=== PATIENT | male | born 1940 | race Caucasian/White ===

== ENCOUNTER 2023-11-03 14:25 | Emergency (ER) | payer MEDICARE, OTHER, SELFPAY ==
[2023-11-03 14:34] VITALS: BP 185/105
[2023-11-03 15:36] VITALS: BMI 31.1
[2023-11-03 15:39] VITALS: BP 207/99
[2023-11-03 15:59] LABS: % Basophils 0.5 % (0-2); % Eosinophils 5.3 % (0-6); % Immature Granulocytes 0.3 % (0-0.5); % Lymphocytes 29.4 % (20.5-51.1); % Monocytes 8.2 % (1.7-9.3); % Neutrophils 56.3 % (42.2-75.2); Absolute Eosinophils 0.4 10^3/uL (0-0.7); Absolute Lymphocytes 2.3 10^3/uL (1.2-3.4); Absolute Monocytes 0.7 10^3/uL (0.1-0.6); Absolute Neutrophils 4.5 10^3/uL (1.4-6.5); Hematocrit 39.6 % (39.0-52.0); Hemoglobin 13.2 g/dL (13.0-18.0); Mean Corp Hgb Conc. 33.3 g/dL (33.0-37.0); Mean Corpuscular Hgb 31.4 pg (27.0-31.0); Mean Corpuscular Volume 94.1 fL (80.0-94.0); Mean Platelet Volume 10.5 fL (7.4-10.4); Nucleated Red Blood Cells % 0 % (-); Platelet Count 166 10^3/uL (130-400); Red Blood Cell Count 4.21 10^6/uL (4.70-6.10); Red Cell Dist. Width 14.3 % (11.5-14.5); White Blood Cell Count 7.9 10^3/uL (4.8-10.8)
--- NOTE | 2023-11-03 16:03 | ED.GENMED ---
History of Present Illness
General
Chief Complaint: DVT/Possible Blood Clot
Source: patient
Time Seen by Provider: 11/03/23 15:28
Travel History
Have you had any contact with someone who has COVID-19?: No
Do you have any symptoms of coronavirus? Fever > 100 degrees, chills, cough, shortness of breath, sore throat, loss of taste or smell, muscle aches, or headache?: No
History of Present Illness
History of Present Illness:
83-year-old male with past medical history of hypertension, CHF, aortic stenosis status post aortic aneurysm and valve repair in 2019 presenting to the emergency department from outpatient radiology where he was found to have a DVT within the left
lower extremity. Per radiology patient was apparently diagnosed with a DVT in August but it is unclear as to why patient was never started on anticoagulation, patient had continued swelling which was reason for getting the ultrasound today when
he was found to have progression of previous DVT and sent to the ER for further evaluation. Patient notes he was not aware that he was diagnosed with a DVT in August and is unsure as to why he was never given any anticoagulation. He denies any
chest pain, shortness of breath, palpitations, diaphoresis, pleurisy, cough, hemoptysis or any other concerns. Patient states his main symptom is left lower extremity edema that normally resolves overnight but then progresses again throughout the
daytime.
Past History
Past History
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
ED Past Surgical History: Cardiac, Orthopedic and Other
Social History
Tobacco: Non-smoker
Alcohol: None
Drug: None
Personal:
Living: with family
Family History
Family History: Other (nc)
Review of Systems
Review of Systems
All Other Systems: ROS reviewed and negative except as documented in HPI and ROS
Phy Exam
Physical Exam
Physical Exam:
GENERAL: Alert , in no apparent distress
EYE: conjunctiva clear
Head: Normocephalic atraumatic
NECK: Supple,
ENT: mmm.
Heart: Regular rate and rhythm,
LUNGS: no acute respiratory distress, clear to auscultation
NEUROLOGICAL: Alert and oriented
SKIN: Warm and dry, skin intact.
MUSCULOSKELETAL: well perfused. Moderate left lower extremity edema compared to the right. Easily palpable pedal and tibial pulse. Cap refill less than 2 seconds. Sensation grossly intact to light touch.
PSYCH: Normal and appropriate interaction.
Scores
Heart Failure Risk
Heart Failure Risk Score: Not Applicable
Heart Score for Chest Pain Patients
STEMI patient?: Not applicable
Withdrawal Assessment of Alcohol
Withdrawal Assessment Completed?: Not applicable
Course
Orders/Labs/Results
Orders:
Orders
11/03/23 15:29
IV Insert/Care/Rem.- Treatment PRN
11/03/23 15:52
Basic Metabolic Panel Urgent
Complete Blood Count/With Diff Urgent
PTT Urgent
Prothrombin Time Urgent
11/03/23 16:56
Apixaban [Eliquis] 10 mg PO NOW STA
Abnormal Lab Results
11/03/23
15:52
RBC 4.21 L 10^6/uL
(4.70-6.10)
MCV 94.1 H fL
(80.0-94.0)
MCH 31.4 H pg
(27.0-31.0)
MPV 10.5 H fL
(7.4-10.4)
Absolute Monos (auto) 0.7 H 10^3/uL
(0.1-0.6)
BUN 21 H mg/dl
(9-20)
11/03/23 15:52
11/03/23 15:52
Vital Signs
Initial and Last Documented VS:
Initial Vital Signs
Temp Pulse Resp BP Pulse Ox
98.2 F 69 18 185/105 96
11/03/23 14:34 11/03/23 14:34 11/03/23 14:34 11/03/23 14:34 11/03/23 14:34
Last Documented Vital Signs
Temp Pulse Resp BP Pulse Ox
98.2 F 69 18 207/99 97
11/03/23 14:34 11/03/23 15:39 11/03/23 15:39 11/03/23 15:39 11/03/23 15:39
Mangle Catcher consulted with Physician
Mangle Catcher consulted with physician?: Yes
Name of Physician Consulted: Ericka
MDM/Problems Addressed
MDM/Problems Addressed:
Patient presenting to the emergency department for evaluation after he was found to have occlusive DVT within the left mid and distal femoral vein as well as the left popliteal vein. There is nonocclusive thrombus within the proximal left femoral
vein. Patient is without any other concerns outside of swelling to the left lower extremity. Patient is on a daily 81 mg aspirin. Does not have any further bleeding risks. Patient is noted to be hypertensive. Will monitor this. Will discuss
the case with vascular with disposition pending.
Chronic conditions affecting care: HTN
Acute Exacerbation and/or Progression of Chronic Illness: HTN
*Radiology
Radiology exam reviewed: radiology read reviewed
*Pulse Oximetry
Patient hypoxic: no
*Critical Care Note
Total Time (30-74mins, 75-104mins- exclusive of procedures): Not Applicable
Data Reviewed
Review of Other/Old Records Reveals: Labs and Radiology Studies
Source: patient
Patient Management
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
Escalation/DeEscalation of care consider admission/obs:
I discussed the case with on-call vascular attending Dr. Weaver who is in agreement that as long as patient does not have any bleeding risks can be safely discharged home on oral anticoagulation.
Patient given first dose of Eliquis here. A 1 month supply of Eliquis was called into patient's pharmacy. I discussed potential side effects of Eliquis with the patient and advised on safety measures while taking Eliquis. Patient will contact his
primary care physician for an expedited follow-up. Otherwise stable for discharge home and aware of return precautions.
ED Attending Note
-
Portions of this chart may have been created with voice recognition software.� Occasional wrong word or��sound alike� substitutions may have occurred due to the inherent limitations of voice recognition software.
Discharge Plan
Departure
Patient Disposition: Home (Routine Discharge)
Date of Disposition: 11/03/23
Time of Disposition: 16:56
Patient with high blood pressure during this ER visit?: Yes
Discharge Problem:
Acute deep vein thrombosis (DVT) of left lower extremity, Hypertension
Instructions: Deep Vein Thrombosis (Blood Clots in the Legs) (DC)
Prescriptions:
New
Eliquis 5 mg tablet
5 mg PO BID Qty: 68 0RF
Rx Instructions:
Take 2 tabs PO BID x 6.5 days. Take one tab PO BID remaining days
No Action
budesonide-formoterol [Symbicort] 1 PUFF HFA aerosol inhaler
2 puff inhalation R BID
aspirin 81 MG tablet,delayed release (DR/EC)
81 mg PO DAILY
gabapentin 300 MG capsule
300 mg PO DAILY
omeprazole 40 MG capsule,delayed release(DR/EC)
40 mg PO DAILY AT 0700
metoprolol tartrate 12.5 MG tablet
12.5 mg PO BID
Referrals:
DUNCAN NIELSEN, [Family Provider] -
Interventions
Interventions:
*Risk Screen - Suicide Last Done: 11/03/23 14:36
*General Assessment Last Done: 11/03/23 14:36
*Neglect/Abuse Screening Last Done: 11/03/23 14:36
*ED COVID-19 Vaccine History Last Done: 11/03/23 15:38
ED- Cardiac Assessment Last Done: 11/03/23 15:42
ED- Pulmonary Assessment Last Done: 11/03/23 15:42
ED-Peripheral Vascular Assessment Last Done: 11/03/23 15:43
ED-Skin Assessment Last Done: 11/03/23 15:42
[2023-11-03 16:20] LABS: Blood Urea Nitrogen 21 mg/dl (9-20); Calcium 9.4 mg/dl (8.4-10.2); Carbon Dioxide 28 mmol/L (22-30); Chloride 102 mmol/L (98-107); Estimated Creatinine Clearance 74 ml/min; Glucose 99 mg/dl (70-99); Potassium 4.3 mmol/L (3.5-5.1); Sodium 140 mmol/L (135-145); eGFR > 60.00
[2023-11-03 16:25] LABS: APTT 26.7 Sec (23.4-35.0); INR 1.01; PT 13.3 Sec (11.4-14.6)
[2023-11-03] MEDS: ELIQUIS 10 MG PO (17:03)
== END 2023-11-03 17:08 | disposition home or self-care (01) ==
LOC: EMR 14:25
PROVIDERS: Physician Assistant Medical; EMERGENCY PHYSICIAN Emergency Medicine; FAMILY PHYSICIAN Family Medicine
DX: I82.412 Acute embolism and thrombosis of left femoral vein (principal); I11.0 Hypertensive heart disease with heart failure; I50.9 Heart failure, unspecified
CPT/HCPCS: 99283; 80048; 85025; 85610; 85730; 93971

== ENCOUNTER → 2024-01-27 07:06 | Day surgery (SDC) | payer MEDICARE, OTHER, SELFPAY ==
[2024-01-27] VITALS (18 sets, daily range): BP systolic 127–198; BP diastolic 79–96; BMI 33.2
[2024-01-27] MEDS: NSS 314 ML IV (08:04)
--- NOTE | 2024-01-27 11:40 | ITS.CL.CATH ---
Regional Business Development Manager - Catheterization
Cardiac Catheterization
Procedure Report:
CARDIAC CATHETERIZATION REPORT
Date of Procedure: 01/27/2024
Referring: Cm Busch MD
Indication: Exertional dyspnea with abnormal stress test, history AVR 2019
HEMODYNAMIC DATA
AO: 196/76
LV: Not done
LEFT VENTRICULOGRAPHY: Not done as we chose not to cross the bioprosthetic valve
CORONARY ANGIOGRAPHY
Dominance: Right
Left Main: Short without focal stenosis
LAD: Moderately calcified vessel with 30% mid stenosis and otherwise diffuse mild luminal irregularities
Circumflex: Mildly ectatic vessel with mild luminal irregularities
RCA: 40% mid RCA stenosis with otherwise mild luminal irregularities in the RCA proper. There is 60% distal RPDA stenosis
Closure Device: None-the procedure was performed via the right radial artery
Radiation (mGy): 1118
DAP (cm2.Gy): 91.8
Fluoroscopy time: 9.5 minutes
CONCLUSIONS
1: Systemic hypertension
2: Mild CAD as described. The coronary anatomy is similar to the preop study done in 2018. The mid RCA lesion is similar to slightly improved. There is now a distal RPDA lesion which subtends a very small amount of myocardium
3. Continue medical therapy. The patient has been advised to purchase a home blood pressure machine and record daily a.m. blood pressures to bring to all physician visits. I strongly suspect he will require antihypertensive medication. Consider
adding statin to regimen given the presence of underlying CAD with goal LDL less than 70
Copy to: Cm Busch MD, Tavon Dc, DO
Evan Segura MD, [facility], [facility]
== END | disposition home or self-care (01) ==
LOC: CATH 07:06
PROVIDERS: ATTENDING PHYSICIAN Internal Medicine Cardiovascular Disease; FAMILY PHYSICIAN Family Medicine; OTHER PHYSICIAN Internal Medicine Clinical Cardiac Electrophysiology
DX: I25.10 Atherosclerotic heart disease of native coronary artery without angina pectoris (principal); R94.39 Abnormal result of other cardiovascular function study; R06.09 Other forms of dyspnea; Z95.2 Presence of prosthetic heart valve; I10 Essential (primary) hypertension; I25.84 Coronary atherosclerosis due to calcified coronary lesion; Z79.01 Long term (current) use of anticoagulants; Z79.82 Long term (current) use of aspirin
CPT/HCPCS: 93454; C1769; Q9967

== ENCOUNTER → 2024-07-16 06:29 | Day surgery (SDC) | payer MEDICARE, OTHER, SELFPAY | LOC: GI 06:29 | PROVIDERS: ATTENDING PHYSICIAN Internal Medicine | DX: K57.30 Diverticulosis of large intestine without perforation or abscess without bleeding (principal); Z12.11 Encounter for screening for malignant neoplasm of colon; K64.9 Unspecified hemorrhoids; K63.3 Ulcer of intestine; D50.9 Iron deficiency anemia, unspecified; K44.9 Diaphragmatic hernia without obstruction or gangrene; K22.70 Barrett's esophagus without dysplasia; D12.3 Benign neoplasm of transverse colon; D12.1 Benign neoplasm of appendix; D12.0 Benign neoplasm of cecum; K63.5 Polyp of colon; Z86.0100 Personal history of colon polyps, unspecified; K29.50 Unspecified chronic gastritis without bleeding | CPT/HCPCS: 45388; 45385; 45381; 43239; 88305; 88342 ==